=== PATIENT | female | born 1945 ===

== ENCOUNTER 2020-09-15 06:50 | Day surgery (SDC) | payer OTHER ==
[~2020-09-15 06:50] MED LIST: OMEPRA PO
[2020-09-15] MEDS ORDERED: COLACE100 MG PO (09:24)
[2020-09-15] MEDS ORDERED: PERCOCET 5-3251 EACH PO (09:24)
== END 2020-09-15 14:44 | disposition home or self-care (01) ==
LOC: CIR.AMB 06:50
PROVIDERS: ATTEND Surgery
DX: D12.8 Benign neoplasm of rectum (principal); Z20.822 Contact with and (suspected) exposure to COVID-19